=== PATIENT | female | born 1960 | race Caucasian/White ===

== ENCOUNTER 2019-01-15 03:48 | Emergency (ER) | payer MEDICAID ==
[~2019-01-15] VITALS: Ht 154.9 cm; Wt 58.0 kg
[2019-01-15] MEDS ORDERED: AMLO10TA80 PO (03:59)
[2019-01-15] MEDS ORDERED: LOSA100T14 PO (03:59)
[2019-01-15] MEDS ORDERED: LABE200T28 PO (04:00)
[2019-01-15] MEDS ORDERED: DULO60CA63 PO (04:00)
[2019-01-15 06:21] VITALS: BP 143/95
== END 2019-01-15 07:13 | disposition home or self-care (01) ==
LOC: ER 03:48
DX: F41.9 Anxiety disorder, unspecified (principal); T44.8X5A Adverse effect of centrally-acting and adrenergic-neuron-blocking agents, initial encounter; T45.1X5A Adverse effect of antineoplastic and immunosuppressive drugs, initial encounter; I10 Essential (primary) hypertension; E78.00 Pure hypercholesterolemia, unspecified; E89.0 Postprocedural hypothyroidism; F17.210 Nicotine dependence, cigarettes, uncomplicated; Y92.018 Other place in single-family (private) house as the place of occurrence of the external cause
CPT/HCPCS: 99281